=== PATIENT | female | born 1945 | race Two or more races ===

== ENCOUNTER → 2024-03-11 | Outpatient (CLI) | payer MEDICARE, SELFPAY ==
--- NOTE | 2024-03-11 12:40 | XR_ITS ---
Examination: Bone densitometry Date and time of exam:March 11, 2024 1219 hours INDICATIONS: Menopause age 44, personal history osteopenia, diabetic Technique: Lumbar spine and hip total bone mineralization values of an calculated. Peak reference and age match control results have been displayed. Findings: Lumbar spine total bone mineralization is0.757 gm/cm2. This is 2.6 standard deviations below peak reference. This is 0.1 standard deviations above age-matched controls. Hip total bone mineralization is 0.834 gm/cm2 This is 1.0 standard deviations below peak reference. This is 1.1 standard deviations above age-matched controls Impression: There is osteoporosis based on lumbar spine measurements. There is osteopenia based on hip measurements Lumbar mineralization is decreased 3.1% compared with October 14, 2020 Hip mineralization is decreased 3.7% compared with October 14, 2020
== END | disposition home or self-care (01) ==
PROVIDERS: PCP Internal Medicine; Referring Provider Internal Medicine; Visit Provider Internal Medicine
DX: M81.0 Age-related osteoporosis without current pathological fracture (principal); M85.88 Other specified disorders of bone density and structure, other site
CPT/HCPCS: 77080

== ENCOUNTER 2024-05-13 07:00 | Day surgery (SDC) | payer MEDICARE, SELFPAY ==
[2024-05-12 14:24] VITALS: BMI 26.2
[2024-05-13] VITALS (11 sets, daily range): BP systolic 127–168; BP diastolic 68–92; PULSE 64–86; RESP 16–20; TEMP 36.4–37.2; O2SAT 95–100; BMI 25.2
[2024-05-13] MEDS: SODIUM CHLORIDE 0.9% 100 ML IV (07:55)
[2024-05-13] MEDS: DiphenhydrAMINE INJ 50 MG/ML VIAL 25 MG IV (07:57)
[2024-05-13] MEDS: fentaNYL CIT INJ 50 mCg/ML AMP 2ML (ASD USE ONLY) IV (08:05)
[2024-05-13] MEDS: MIDAZOLAM INJ 1 MG/ML VIAL 2 ML (ASD USE ONLY) 2 MG IV (08:19)
--- NOTE | 2024-05-13 08:24 | SUR.PHASEII ---
PATIENT INTO RECOVERY ROOM WITH NO ACUTE DISTRESS NOTED, V/S STABLE, NO COMPLAINTS OF PAIN OR NAUSEA AT THIS TIME.
== END 2024-05-13 09:06 | disposition home or self-care (01) ==
PROVIDERS: PCP Nurse Practitioner Family; Referring Provider Surgery; Visit Provider Surgery
PROC: 0DBE8ZX Excision of Large Intestine, Via Natural or Artificial Opening Endoscopic, Diagnostic (ICD-10-PCS; CPT 45380; principal; 2024-05-13 08:00)
DX: Z12.11 Encounter for screening for malignant neoplasm of colon (principal); K62.89 Other specified diseases of anus and rectum; K12.2 Cellulitis and abscess of mouth; K64.1 Second degree hemorrhoids; K64.4 Residual hemorrhoidal skin tags; K57.30 Diverticulosis of large intestine without perforation or abscess without bleeding
CPT/HCPCS: 45385; 45380; J1200; J2250; J3010; J7050

== ENCOUNTER → 2024-06-15 | Outpatient (CLI) | payer MEDICARE, SELFPAY ==
--- NOTE | 2024-06-15 13:00 | XR_ITS ---
Examination: Pelvic ultrasound, transabdominal, complete Technique: Transabdominal ultrasound of the pelvis performed using grayscale imaging Date and time of exam: June 15, 2024 1337 hours INDICATIONS: Perineal pain and itching beginning one week ago FINDINGS: Uterus 11.5 cm endometrial stripe 1.6 cm Right ovary obscured by bowel gas Left ovary 3.1 cm arterial flow IMPRESSION: Abnormal thickening of the endometrium, 16 mm, differential would include malignant neoplasm of the endometrium Recommend elective MRI pelvis follow-up pre and postcontrast
== END | disposition home or self-care (01) ==
LOC: CDIM 13:08
PROVIDERS: PCP Nurse Practitioner Family; Referring Provider Nurse Practitioner Family; Visit Provider Nurse Practitioner Family
DX: R93.89 Abnormal findings on diagnostic imaging of other specified body structures (principal)
CPT/HCPCS: 76856

== ENCOUNTER → 2024-06-17 | Outpatient (CLI) | payer MEDICARE, SELFPAY ==
--- NOTE | 2024-06-17 13:30 | XR_ITS ---
Examination: Abdomen sonogram, complete Date and time of exam: June 17, 2024 1332 hours Comparison January 16, 2022 INDICATIONS: Abdomen sonogram January 16, 2022 borderline gallbladder wall thickening 0.36 cm, left-sided abdominal pain beginning 2 years ago. Technique: Multiple real-time grayscale transabdominal sonographic images of the abdomen have been obtained. Findings: Negative for gallstones Gallbladder wall 0.38 cm Common bile duct 0.4 cm Pancreatic head 2.0 cm Aorta not enlarged Liver 13.2 cm smooth contour no focal liver lesions Normal hepatopedal portal venous flow Patent IVC Right kidney 9.2 cm cortex 1.1 cm Left kidney 10.0 cm cortex 1.4 cm Moderate bilateral renal parenchymal scar formation No hydronephrosis Spleen 8.1 cm IMPRESSION: Negative for cholelithiasis, negative for cholecystitis Moderate bilateral renal parenchymal scar formation No hydronephrosis
== END | disposition home or self-care (01) ==
LOC: CDIM 13:09
PROVIDERS: PCP Nurse Practitioner Family; Referring Provider Nurse Practitioner Family; Visit Provider Nurse Practitioner Family
DX: N28.89 Other specified disorders of kidney and ureter (principal)
CPT/HCPCS: 76700